=== PATIENT | male | born 1935 | race Caucasian/White ===

== ENCOUNTER → 2016-07-15 | Outpatient (CLI) | payer MEDICARE, BC ==
[~2016-07-15] MED LIST: ACETAMINOPHEN PO; ARTIFICIAL TEAR1 DRP OU; ARTIFICIAL TEAR15 M9 OU; ASPIRIN EC81 M1 PO; ASPIRIN PO; ASPIRIN81 M1 PO; ASPIRIN81 M2 PO; AVODART0.5 MG PO; COUMADIN PO; COUMADIN2.5 MG PO; COUMADIN4 MG PO; COUMADIN5 MG PO; FLOMAX0.4 M1 PO; HYDROCODON-ACE1 EAC9 PO; HYDROCODONE/APA1 T16 PO; KEFLEX500 MG PO; LOPRESSOR PO; MACROBID100 MG PO; METOPROLOL SUCC25 MG PO; SIMVASTATIN20 MG PO; SLOW-MAG64 MG PO; TAMSULOSIN HCL0.4 MG PO; TOPROL XL PO; ZOCOR PO; ZOCOR20 MG PO; [UNRECOGNIZED DRUG - OTHER] PO
[2016-07-15 11:47] LABS: HEMATOCRIT 46.8 % (38.0-50.0); HEMOGLOBIN 15.3 gm/dL (13.0-16.0); MEAN CORPUSCULAR HEMOGLOBIN 31.1 PG (28-34); MEAN CORPUSCULAR HGB CONC 32.7 g/dL (30-36); MEAN PLATELET VOLUME 8.5 FL (6.5-11.5); RED BLOOD COUNT 4.93 X10e (3.90-5.60); RED CELL DISTRIBUTION WIDTH 13.5 % (11.0-15.5); WHITE BLOOD COUNT 9.6 X10e3 (4.0-10.5)
[2016-07-15 12:12] LABS: BLOOD UREA NITROGEN 13 mg/dL (9-23); BUN/CREATININE RATIO 16.25; CALCIUM SERUM 9.2 mg/dL (8.4-10.2); CARBON DIOXIDE 30 mmol/L (22-31); CHLORIDE 109 mmol/L (100-111); CREATININE SERUM 0.8 mg/dL (0.6-1.4); GLOM FILT RATE Estimated ABOVE60 mL/min (>60); GLUCOSE FASTING 84 mg/dL (70-110); POTASSIUM 4.3 mmol/L (3.5-5.1); SODIUM 142 mmol/L (135-145)
== END | disposition home or self-care (01) ==
LOC: CAMB 10:29
PROVIDERS: Urology
DX: N32.9 Bladder disorder, unspecified (principal)
CPT/HCPCS: 36415; 80048; 85027

== ENCOUNTER 2016-07-22 08:30 | Inpatient (IN) | payer MEDICARE, BC ==
--- NOTE | ~2016-07-22 | OR ---
Unit #: [id number] #: [id number] Patient: RUBY GU JR [id number] [address] [place], [place] [address] [id number] MR#: [id number] NAME: RUBY GU JR ROOM: Date of Procedure: 07/22/2016 Admission Date: 07/22/2016 Surgeon: Lalo Mejia M.D. : 1935 Attending Physician: Lalo Mejia M.D. Referring Physician: Lalo Mejia M.D. Primary Care Physician: Adamaris Galvez M.D. PROCEDURE OPERATIVE NOTE PREOPERATIVE DIAGNOSIS Bladder tumor, dome. POSTOPERATIVE DIAGNOSIS Bladder tumor, dome. PROCEDURES PERFORMED 1. Transurethral resection bladder tumor, small. 2. Complex catheter placement. ANESTHESIA General. INDICATION FOR PROCEDURE Mr. Gu is a pleasant 80-year-old male who presented with gross hematuria. Cystoscopy revealed a tumor along the right lateral wall near the dome. The risks, benefits and alternatives including bleeding, infection, damage to adjacent structures, need for further surgery as well as the risks of anesthesia were explained to the patient. Informed consent was obtained. The patient wished to proceed. PROCEDURE The patient was taken to the operating suite and properly identified after the application of satisfactory general anesthetic. The patient was placed in the dorsal lithotomy position. All pressure points were padded to the satisfaction of the surgical, anesthetic and nursing teams. Genitalia was prepped and draped in the usual sterile fashion. I introduced a 22[place] cystoscope. The penile urethra was normal. In the prostatic urethra he has an undermining of the prostate and so I had to look anterior to this, but his prostate had only a moderate obstruction. On entering the bladder there was mild to moderate trabeculation and the previously seen papillary tumor was noted anteriorly near the dome on the right lateral wall. It essentially had a stalk connecting it to the dome. I used cold cut biopsy forceps to remove the tumor in its entirety. I bovied the base and hemostasis was excellent. I placed a 0.035 sensory wire in the bladder. I passed a 20-[place] 3-way catheter over the wire and initiated continuous bladder irrigation. The patient tolerated the procedure well without complications and was transported stable to the PACU. Unit #: [id number] #: [id number] Patient: GU,RUBY Mckeon JR Dictated by... Ken Forman/gz TD: 07/22/2016 11:44 JOB #: [id number] PROCEDURE OPERATIVE NOTE Page 1 of 1 X Lalo Mejia MD X PROCEDURE OPERATIVE NOTE
--- NOTE | ~2016-07-22 | CO ---
Unit #: [id number] #: [id number] Patient: RUBY KRISHNA JR [id number] [address] [address] [id number] MR#: [id number] NAME: RUBY KRISHNA JR ROOM: 46 Age: 80 Sex: M Admission Date: 07/22/2016 : 1935 Attending Physician: Lalo Mejia M.D. Primary Care Physician: Elizabeth Galvez Consultation Date: 07/23/2016 CONSULTATION REPORT REASON FOR CONSULTATION Sinus bradycardia and atrial fibrillation. HISTORY OF PRESENT ILLNESS The patient is an 80-year-old man who is followed by Dr. Flanagan for a history of a CABG x7 in 2001 and he is also on chronic anticoagulation. Additional past medical history includes hypertension, hyperlipidemia, BPH, bladder tumor, and questionable obstructive sleep apnea. The patient also has a questionable history of atrial fibrillation. The patient was admitted for an outpatient transurethral resection of bladder tumor. The patient tolerated the procedure well. The patient did have cardiac clearance from Dr. Flanagan prior to the surgery. The patient was off the Coumadin for five days prior to the surgery. The patient denies any nausea, vomiting, fever, chills, chest pain, or shortness of air. The patient's Barrios catheter was discontinued this morning. Cardiology was consulted for heart rates 40s to 60s and concerns for atrial fibrillation. PAST MEDICAL HISTORY 1. Coronary artery disease with history of CABG x7 in 2001. 2. Reportedly a normal stress test per Dr. Flanagan. 3. Hypertension. 4. Hyperlipidemia. 5. Questionable atrial fibrillation. 6. Questionable obstructive sleep apnea. 7. BPH. ALLERGIES Codeine. HOME MEDICATIONS 1. 4 mg p.o. daily. 2. Aspirin 81 mg p.o. daily. 3. Lopressor 25 mg p.o. daily. 4. Zocor 20 mg p.o. at bedtime. 5. Flomax 0.4 mg p.o. daily. 6. Artificial Tears. SOCIAL HISTORY The patient is a reformed smoker. No alcohol or illicit drug abuse. Unit #: [id number] #: [id number] Patient: RUBY KRISHNA JR FAMILY HISTORY Medically noncontributory. REVIEW OF SYSTEMS A 10-point review of systems was done and is considered otherwise negative unless indicated in the HPI. PHYSICAL EXAMINATION GENERAL: The patient is awake and alert in no acute distress. VITAL SIGNS: Temperature 97.6, heart rate 57, respirations 18, blood pressure 142/64, and he is oxygenating 94%. HEENT: Head is atraumatic, normocephalic. Pupils equal, round, and reactive. Extraocular movements are intact. No discharge from ears or nares. NECK: Supple. Trachea is midline. No thyromegaly or lymphadenopathy is appreciated. Normal carotid upstrokes. LUNGS: Clear to auscultation bilaterally. No wheezes, rales, or rhonchi. CARDIOVASCULAR: S1, S2. Regular rate and rhythm. No murmurs, rubs, or gallops appreciated. ABDOMEN: Soft, nontender, nondistended. Bowel sounds are positive in all four quadrants. SKIN: Appears to be warm, dry, and intact without any unusual rashes or lesions. EXTREMITIES: No clubbing, edema, or cyanosis. GENITOURINARY: Barrios catheter has been discontinued. NEUROLOGIC: The patient is alert and oriented x2 to 3. He is forgetful. Cranial nerves II-XII appear to be intact. DIAGNOSTIC STUDIES LABORATORY: INR is 1. PROCEDURE The patient underwent a transurethral resection of a tumor. ASSESSMENT 1. Abnormal heart rhythm, possible atrial fibrillation versus sinus bradycardia. 2. Bladder tumor, status post transurethral resection postop day #1. 3. Hypertension. 4. Coronary artery disease. 5. History of coronary artery bypass grafting x7 in 2001. 6. Benign prostatic hypertrophy. 7. Questionable obstructive sleep apnea. 8. Reformed tobaccoism. PLAN The patient has been off his Coumadin for approximately six days now. I have discussed this with urology and they state that Coumadin and aspirin need to be held until Tuesday. I have discussed this with the patient and the patient's and they deny any history of atrial fibrillation. Will check an EKG now. Will check a BMP, magnesium, TSH, and a lipid panel. Will ask nursing to obtain records from Dr. Flanagan's office like last office note, stress report, echo report, and cath report. Will check a troponin x1. Dr. Burk will need to see and evaluate the patient. Unit #: [id number] #: [id number] Patient: RUBY KRISHNA JR Dictated by... Una Nguyen A.P.R.N. for Ken Diaz TD: 07/23/2016 11:28 JOB #: [id number] CONSULTATION REPORT Page 1 of 1 X Una Nguyen APRN X CONSULTATION REPORT
--- NOTE | ~2016-07-22 | EKG ---
PATIENT: RUBY KRISHNA UNIT #: [id number] Ventricular Rate: 59 BPM Atrial Rate: 62 BPM QRS Duration: 96 ms Q-T Interval: 482 ms QTC Calculation(Bezet): 477 ms Calculated R Brinkley: -9 degrees Calculated T Brinkley: -5 degrees Diagnosis Line: Atrial fibrillation with slow ventricular response Diagnosis Line: Incomplete right bundle branch block Diagnosis Line: Abnormal ECG Diagnosis Line: When compared with ECG of 16-JUL-2013 15:15, Diagnosis Line: QT has lengthened Diagnosis Line: Confirmed by MATT NAVA MD ([id number]) on 07/26/2016 Diagnosis Line: 10:46:12 PM INTERPRETING MD: ELIJAH MACIAS
--- NOTE | ~2016-07-22 | EKG ---
PATIENT: RUBY KRISHNA UNIT #: [id number] Ventricular Rate: 66 BPM Atrial Rate: 64 BPM QRS Duration: 90 ms Q-T Interval: 424 ms QTC Calculation(Bezet): 444 ms Calculated R Mcdougal: 5 degrees Calculated T Mcdougal: -3 degrees Diagnosis Line: Atrial fibrillation Diagnosis Line: Nonspecific ST abnormality , probably digitalis Diagnosis Line: effect Diagnosis Line: Abnormal ECG Diagnosis Line: When compared with ECG of 23-JUL-2016 12:31, Diagnosis Line: (unconfirmed) Diagnosis Line: No significant change was found Diagnosis Line: Confirmed by MATT NAVA MD ([id number]) on 07/26/2016 Diagnosis Line: 10:51:30 PM INTERPRETING MD: ELIJAH MACIAS
[~2016-07-22 08:30] MED LIST changes: -ARTIFICIAL TEAR15 M9 OU; -ASPIRIN81 M2 PO; -COUMADIN2.5 MG PO; -HYDROCODONE/APA1 T16 PO; -SIMVASTATIN20 MG PO
[2016-07-22 09:41] LABS: PROTHROMBIN TIME (PATIENT) 10.9 SECONDS (9.6-11.5)
[2016-07-23 13:32] LABS: BUN/CREATININE RATIO 16.66; CALCIUM SERUM 8.6 mg/dL (8.4-10.2); CREATININE SERUM 0.9 mg/dL (0.6-1.4); GLOM FILT RATE Estimated 79.8 mL/min (>60); MAGNESIUM 1.7 mg/dL (1.6-3.0); POTASSIUM 4.2 mmol/L (3.5-5.1)
[2016-07-24] MEDS ORDERED: KEFLEX500 MG PO (12:41)
[2016-07-24] MEDS ORDERED: HYDROCODONE/APA1 T16 PO (12:42)
[2017-01-24] MEDS ORDERED: METOPROLOL SUCC25 MG PO (12:51)
[2017-01-24] MEDS ORDERED: SIMVASTATIN20 MG PO (12:52)
[2017-01-24] MEDS ORDERED: ASPIRIN81 M2 PO (12:54)
[2017-01-24] MEDS ORDERED: FLOMAX0.4 M1 PO (12:55)
[2017-01-24] MEDS ORDERED: ARTIFICIAL TEAR15 M9 OU (12:55)
[2017-01-24] MEDS ORDERED: COUMADIN5 MG PO (12:59)
[2017-01-24] MEDS ORDERED: COUMADIN2.5 MG PO (12:59)
== END 2016-07-24 13:13 | disposition home or self-care (01) | DRG 670 ==
LOC: CSUR 08:30 → C4C 07-23 14:50
PROVIDERS: Urology
PROC: 0TBB8ZZ Excision of Bladder, Via Natural or Artificial Opening Endoscopic (ICD-10-PCS; principal; 2016-07-23)
DX: C67.2 Malignant neoplasm of lateral wall of bladder (principal); R31.0 Gross hematuria; I48.2 Chronic atrial fibrillation; I25.10 Atherosclerotic heart disease of native coronary artery without angina pectoris; Z95.1 Presence of aortocoronary bypass graft; N32.89 Other specified disorders of bladder; G47.33 Obstructive sleep apnea (adult) (pediatric); N40.0 Benign prostatic hyperplasia without lower urinary tract symptoms; Z87.891 Personal history of nicotine dependence; I10 Essential (primary) hypertension; E78.5 Hyperlipidemia, unspecified
CPT/HCPCS: 80048; 80061; 83735; 84484; 85610; 88305; 93005; 94760; J0690; J2270; J2405; J3010

== ENCOUNTER 2017-01-16 18:53 | Emergency (ER) | payer MEDICARE, BC ==
[~2017-01-16] VITALS: Ht 182.9 cm; Wt 77.1 kg
[~2017-01-16 18:53] MED LIST changes: +HYDROCODONE/APA1 T16 PO
[2017-01-24] MEDS ORDERED: METOPROLOL SUCC25 MG PO (12:51)
[2017-01-24] MEDS ORDERED: SIMVASTATIN20 MG PO (12:52)
[2017-01-24] MEDS ORDERED: ASPIRIN81 M2 PO (12:54)
[2017-01-24] MEDS ORDERED: ARTIFICIAL TEAR15 M9 OU (12:55)
[2017-01-24] MEDS ORDERED: FLOMAX0.4 M1 PO (12:55)
[2017-01-24] MEDS ORDERED: COUMADIN2.5 MG PO (12:59)
[2017-01-24] MEDS ORDERED: COUMADIN5 MG PO (12:59)
== END 2017-01-16 19:25 | disposition left against medical advice (07) ==
LOC: CED 18:53
DX: Z53.21 Procedure and treatment not carried out due to patient leaving prior to being seen by health care provider (principal)